=== PATIENT | male | born 1995 | race Caucasian/White ===

== ENCOUNTER 2017-03-13 11:02 | Emergency (ER) | payer OTHER ==
[2017-03-13] MEDS ORDERED: Acetaminophen TAB* 325 MG PO ONE (12:19)
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
[2017-03-13] MEDS ORDERED: NS 0.9% 1000 ML* 1,000 ML IV ONE (13:18)
[2017-03-13] MEDS ORDERED: Lidocaine 2% EPI 1:200000 MPF* 20 ML VIAL ONE (13:43)
[2017-03-13 14:00] LABS: Hematocrit 45 % (42-52); Hemoglobin 15.2 g/dl (14.0-18.0); Mean Corpuscular HGB Conc 34 g/dl (31-36); Mean Corpuscular Hemoglobin 31 pg (27-31); Mean Corpuscular Volume 91 fL (80-94); Mean Platelet Volume 10 um3 (7.4-10.4); Red Blood Count 4.92 10^6/ul (4.0-5.4); Red Cell Distribution Width 13 % (10.5-15)
[2017-03-13 14:09] LABS: BUN/Creatinine Ratio 10.1 (8-20); Calcium 10.1 mg/dL (8.6-10.3); EGFR African American 123.9 (>60); EGFR Non-African American 96.4 (>60); Globulin 2.2 g/dL (2-4); Potassium 4.1 mmol/L (3.5-5.0); Total Bilirubin 0.6 mg/dL (0.2-1.0); Total Protein 7.2 g/dL (6.4-8.9)
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
[2017-03-13 14:54] VITALS: BP 134/59
== END 2017-03-13 14:55 | disposition short-term general hospital (02) ==
LOC: ED 11:02
DX: S00.93XA Contusion of unspecified part of head, initial encounter (principal); I60.9 Nontraumatic subarachnoid hemorrhage, unspecified; S06.5X9A Traumatic subdural hemorrhage with loss of consciousness of unspecified duration, initial encounter; S01.01XA Laceration without foreign body of scalp, initial encounter; S01.81XA Laceration without foreign body of other part of head, initial encounter; S01.511A Laceration without foreign body of lip, initial encounter; F17.200 Nicotine dependence, unspecified, uncomplicated; F90.9 Attention-deficit hyperactivity disorder, unspecified type; S02.119A Unspecified fracture of occiput, initial encounter for closed fracture
CPT/HCPCS: 12011; 36415; 70450; 72125; 80053; 85025; 85610; 85730; 86850; 86900; 86901; 96360; 99285; A9270-GY